=== PATIENT | male | born 1985 | race Caucasian/White ===

== ENCOUNTER 2016-09-27 09:54 | Emergency (ER) | payer BC, OTHER ==
[~2016-09-27] VITALS: Ht 172.7 cm; Wt 99.8 kg
--- NOTE | ~2016-09-27 | EKG ---
[place] [address] [address] [facility] [place] [address] ELECTROCARDIOGRAM REPORT Name: GALA AGUSTIN Room #: DEP Landen#: [id number] Admission: 09/27/16 Attend Phys: Discharge: 09/27/16 Date of : 89 Report #: [id number] THIS REPORT FOR: //name// [facility] ED Test Date: 2016-09-27 Test Time: 10:01:00 Pat Name: GALA AGUSTIN Department: Room: Gender: [id number] [id number] Armor Crewman: MZOOK : 1985 Requested By: Stacey Thrasher Order Number: [id number] MD: Yuri Aragon Measurements Intervals Ida Rate: 78 P: 24 LA: 137 QRS: -13 QRSD: 111 T: 37 QT: 390 QTc: 445 Interpretive Statements Sinus rhythm Normal tracing No previous ECG available for comparison Electronically Signed On 09-28-2016 7:13:15 CDT by Yuri Aragon [email or web address] <ELECTRONICALLY SIGNED> By: Yuri Aragon MD, [facility] 09/28/16 0713 1001 1001 Yuri Aragon MD, FACC /EPI
[2016-09-27 10:27] LABS: ABSOLUTE NEUTROPHILS 3.8 thou/uL (1.4-8.2); BASOPHILS 0.7 % (0.0-2.0); HEMATOCRIT 47.7 % (42.0-52.0); HEMOGLOBIN 16.3 gm/dL (14.0-18.0); LYMPHOCYTES 28.4 % (24.0-44.0); MCH 30.4 pg (26.0-34.0); MCHC 34.2 g/dL (28.0-37.0); MCV 88.8 fL (80.0-100.0); MONOCYTES 8.2 % (1.0-8.0); PLATELET COUNT 174 thou/uL (150-400); POLYS 61.7 % (36.0-66.0); RBC 5.37 mil/uL (4.50-6.00); RDW 12.8 % (10.5-14.5); WBC 6.2 thou/uL (4.0-11.0)
[2016-09-27 10:29] LABS: MANUAL DIFF NO
[2016-09-27 10:38] LABS: ANION GAP 7 mmol/L (7-16); BUN 18 mg/dL (7-18); CALCIUM 8.5 mg/dL (8.5-10.1); CHLORIDE 103 mmol/L (98-107); CO2 28 mmol/L (21-32); GLUCOSE 114 mg/dL (74-106); SODIUM 138 mmol/L (136-145)
[2016-09-27 10:45] LABS: ALKALINE PHOSPHATASE 49 U/L (46-116); SGOT 22 U/L (15-37); SGPT 31 U/L (30-65); TOTAL BILIRUBIN 0.3 mg/dL (<0.1-1.0); TOTAL PROTEIN 7.1 g/dL (6.4-8.2); TROPONIN-I < 0.04 ng/mL (<0.04-0.07)
[2016-09-27 11:24] VITALS: BP 114/66
== END 2016-09-27 11:26 | disposition home or self-care (01) ==
LOC: ER 09:54
PROVIDERS: Physician Assistant
DX: R42 Dizziness and giddiness (principal); R55 Syncope and collapse; F10.99 Alcohol use, unspecified with unspecified alcohol-induced disorder